=== PATIENT | female | born 1985 | race Hispanic/Latino ===

== ENCOUNTER 2016-09-12 23:28 | Observation (INO) | payer BC, OTHER ==
--- NOTE | 2016-09-12 23:39 | ED PDOC ---
Arrival/HPI - General Time Seen by Provider: 09/12/16 23:33 Historian: Patient - History of Present Illness Narrative History of Present Illness (Text): 09/12/16 23:35 Esme Walker is a 30 year old female who presents to the emergency department via EMS for alcohol intoxication. Per EMS, patient was with drinking with her family today and got into a verbal altercation with them, after which the police was called. Upon arrival, patient is agitated and uncooperative. Denies any suicidal or homicidal ideation. Denies any allergies or drug use. ROS limited due to intoxication. Symptom Onset: Gradual Severity Level: Mild Context: Home Past Medical History - Provider Review Nursing Documentation Reviewed: Yes - Past History Past History: No Previous - Infectious Disease Hx of Infectious Diseases: None - Endocrine/Metabolic Other/Comment: gilbert syndrom, Fransico farley - Musculoskeletal/Rheumatological Hx Musculoskeletal Disorders: No - Psychiatric Hx Substance Use: No - Anesthesia Hx Anesthesia: No Family/Social History - Physician Review Nursing Documentation Reviewed: Yes Family/Social History: No Known Family HX Smoking Status: Unknown If Ever Smoked Hx Alcohol Use: No Hx Substance Use: No Allergies/Home Meds Allergies/Adverse Reactions: Allergies No Known Allergies Allergy (Verified 05/09/15 13:34) Review of Systems - Review of Systems Systems not reviewed;Unavailable: Intoxicated Physical Exam Vital Signs Reviewed: Yes Vital Signs Temp Pulse Resp BP Pulse Ox 09/13/16 06:07 98.1 F 89 18 117/59 L 100 09/13/16 04:00 82 18 97 09/13/16 02:00 78 18 96 09/12/16 23:53 124 H 20 126/85 98 Temperature: Afebrile Blood Pressure: Normal Pulse: Regular Respiratory Rate: Normal Appearance: Positive for: Well-Appearing, Comfortable Pain Distress: None Mental Status: Positive for: Alert and Oriented X 3, Agitated - Systems Exam Head: Present: Atraumatic, Normocephalic Pupils: Present: PERRL Conjunctiva: Present: Normal Mouth: Present: Moist Mucous Membranes Respiratory/Chest: Present: Clear to Auscultation, Good Air Exchange. No: Respiratory Distress Cardiovascular: Present: Regular Rate and Rhythm Abdomen: No: Tenderness, Distention Upper Extremity: Present: Normal Inspection Lower Extremity: Present: Normal Inspection, Other (moving upper and lower extremities x 4) Neurological: Present: GCS=15, CN II-XII Intact, Speech Normal Skin: Present: Warm, Dry, Normal Color. No: Rashes Psychiatric: Present: Alert, Oriented x 3, Agitated, Intoxicated Medical Decision Making ED Course and Treatment: 09/12/16 23:41 Impression: A 30 year old female who presents to the emergency department for alcohol intoxication. Upon arrival, patient is agitated and uncooperative. Alcohol on breath. Patient was agitated and uncooperative and was obviously intoxicated. She would not change into a gown, was yelling about her children, was not redirectable, was threatening staff and posed a danger to herself and others. Sienna snider called and patient placed in restraints which will be removed KAYLIE. Plan: -- Labs -- Ativan -- Haldol -- B-HCG -- Reassess and disposition Progress Notes: 09/13/16 02:01 Labs reviewed. K replacement ordered. Patient is pending sobriety. Will continue to monitor 09/13/16 06:11 Patient is now AAOx3. She is requesting to go home. Patient's mother is coming to emergency department to get her. Will dc 09/13/16 06:35 Patient is not putting full weight of L leg and reports that she "sprained it" when referring to L ankle. Patient is limping around the ER. Patient was offered xrays and futher evaluation but is refusing. She reports "I just wanna go see my kids." Patient told that she could return at any time for evaluation. - Lab Interpretations Lab Results: 09/13/16 01:10 09/13/16 01:10 Lab Results 09/13/16 01:10: POC Glucose (mg/dL) 111 H 09/13/16 01:10: Beta HCG, Quant < 2.39, Alcohol, Quantitative 234 H 09/13/16 01:10: Sodium 140, Potassium 3.3 L, Chloride 103, Carbon Dioxide 23, Anion Gap 17, BUN 14, Creatinine 1.0, Est GFR ( Amer) > 60, Est GFR (Non- Af Amer) > 60, Random Glucose 104, Calcium 9.2, Total Bilirubin 1.5 H, AST 30, ALT 28, Alkaline Phosphatase 47, Total Protein 7.6, Albumin 4.6, Globulin 3.0, Albumin/Globulin Ratio 1.5 09/13/16 01:10: WBC 6.0, RBC 4.34, Hgb 13.4, Hct 40.0, MCV 92.2, MCH 30.9, MCHC 33.5, RDW 12.0, Plt Count 181, MPV 11.1 H, Gran % 69.8 H, Lymph % (Auto) 22.4, [place] % (Auto) 5.4, Eos % (Auto) 2.2, Baso % (Auto) 0.2, Gran # 4.18, Lymph # 1.3 , [place]in # 0.3, Eos # 0.1, Baso # 0.01 - Medication Orders Current Medication Orders: Discontinued Medications Haloperidol Lactate (Haldol) 5 mg IM STAT STA PRN Reason: Protocol Stop: 09/12/16 23:44 Last Admin: 09/12/16 23:46 Dose: 5 mg Lorazepam (Ativan) 2 mg IM ONCE ONE PRN Reason: Protocol Stop: 09/12/16 23:44 Last Admin: 09/12/16 23:46 Dose: 2 mg Potassium Chloride (K-Dur 20 Meq Er Tab) 40 meq PO STAT STA Stop: 09/13/16 01:58 ED OBSERVATION Discharge: Yes Date of observation admission: 09/13/16 Time of observation admission: 02:04 - Observation admission statement Patient is being placed in observation because:: alcohol intoxication - Goals of Observation Goals of observation are:: monitoring for sobriety and reevaluation when sober - Progress Note Progress Note: 09/13/16 04:04 Patient under sedation following agitative behavior. Stable vitals. 09/13/16 06:04 Patient resting comfortably in emergency department with stable vitals. - Scribe Statement The provider has reviewed the documentation as recorded by the Markibe Benigno Aj Provider Attestation: Provider Scribe Attestation: All medical record entries made by the Meli were at my direction and personally dictated by me. I have reviewed the chart and agree that the record accurately reflects my personal performance of the history, physical exam, medical decision making, and the department course for this patient. I have also personally directed, reviewed, and agree with the discharge instructions and disposition. Disposition/Present on Arrival - Present on Arrival Any Indicators Present on Arrival: No History of DVT/PE: No History of Uncontrolled Diabetes: No Urinary Catheter: No History Surgical Site Infection Following: None - Disposition Have Diagnosis and Disposition been Completed?: Yes Diagnosis: Alcohol intoxication, Ankle pain, left Disposition: HOME/ ROUTINE Disposition Time: 02:03 Patient Plan: Discharge Patient Problems: Current Active Problems Problem Status Onset Alcohol intoxication Acute Condition: GOOD
[2016-09-12 23:55] VITALS: BMI 26.7
[2016-09-13 01:41] LABS: ADD MANUAL DIFF? NO
[2016-09-13 01:43] LABS: BASO # 0.01 K/mm3 (0.0-2.0); BASO % 0.2 % (0.0-3.0); EOS # 0.1 (0.0-0.7); EOS % 2.2 % (1.5-5.0); GRAN # 4.18 (1.4-6.5); GRAN % 69.8 % (50.0-68.0); LYMPH # 1.3 (1.2-3.4); LYMPH % 22.4 % (22.0-35.0); MEAN CELL VOLUME 92.2 fL (80.0-105.0); MEAN CORPUSCULAR HEMOGLOBIN 30.9 pg (25.0-35.0); MEAN CORPUSCULAR HGB CONC 33.5 g/dl (31.0-37.0); MEAN PLATELET VOLUME 11.1 fl (7.0-11.0); MONO # 0.3 (0.1-0.6); MONO % 5.4 % (1.0-6.0); PLATELET COUNT 181 10^3/uL (120.0-450.0)
[2016-09-13 01:56] LABS: ALB/GLOB RATIO 1.5 (1.1-1.8); ALKALINE PHOSPHATASE 47 U/L (38-133); ALT/SGPT 28 U/L (7-56); AST/SGOT 30 U/L (15-39); BILIRUBIN,TOTAL 1.5 mg/dL (0.2-1.3); BLOOD UREA NITROGEN 14 mg/dL (7-21); CALCIUM 9.2 mg/dL (8.4-10.5); CARBON DIOXIDE 23 mmol/L (21-33); CHLORIDE 103 mmol/L (98-107); GFR AFRICAN-AMERICAN > 60; GLUCOSE,RANDOM 104 mg/dL (70-110); POTASSIUM 3.3 mmol/L (3.6-5.0); SODIUM 140 mmol/L (132-148); TOTAL PROTEIN 7.6 g/dL (5.8-8.3)
[2016-09-13 01:57] LABS: ALCOHOL SERUM 234 mg/dL (0-10)
[2016-09-13] MEDS ORDERED: Potassium Chloride 20 mEq ER Tab PO STA (01:57)
[2016-09-13 02:18] VITALS: RESP 18
[2016-09-13 06:08] VITALS: BP 117/59; PULSE 89; TEMP 98.1; O2SAT 100
== END 2016-09-13 06:35 | disposition home or self-care (01) ==
LOC: ED 23:28 → EROBSV 09-13 02:03
PROVIDERS: ADMIT Emergency Medicine; ATTEND Emergency Medicine
DX: F10.129 Alcohol abuse with intoxication, unspecified (principal); Y90.7 Blood alcohol level of 200-239 mg/100 ml; M25.572 Pain in left ankle and joints of left foot
CPT/HCPCS: 80053; 80320; 82948; 84702; 85025; 96372; 99285; G0378; J1630; J2060

== ENCOUNTER 2016-09-18 16:39 | Emergency (ER) | payer BC, OTHER ==
[2016-09-18 16:56] VITALS: TEMP 98; O2SAT 98; BMI 28.3
--- NOTE | 2016-09-18 17:18 | ED PDOC ---
Arrival/HPI - General Chief Complaint: Lower Extremity Problem/Injury Time Seen by Provider: 09/18/16 17:13 Historian: Patient - History of Present Illness Narrative History of Present Illness (Text): 09/18/16 17:15 30yo female who present with complaint of left foot pain/discoloration x one week. She states that she twisted her foot a week ago, while coming down stairs. Notes that she has being walking on the foot and did not take any medication for the pain. She states that she came to ED today because of the persistent swelling and discoloration. Denies any other complaint. Past Medical History - Provider Review Nursing Documentation Reviewed: Yes - Past History Past History: No Previous - Infectious Disease Hx of Infectious Diseases: None - Endocrine/Metabolic Other/Comment: gilbert syndrom, Fransico farley - Musculoskeletal/Rheumatological Hx Musculoskeletal Disorders: No - Psychiatric Hx Substance Use: No - Surgical History Hx Section: Yes - Anesthesia Hx Anesthesia: No Family/Social History - Physician Review Nursing Documentation Reviewed: Yes Family/Social History: Unknown Family HX Smoking Status: Never Smoked Hx Alcohol Use: No Hx Substance Use: No Allergies/Home Meds Allergies/Adverse Reactions: Allergies No Known Allergies Allergy (Verified 09/18/16 17:14) Review of Systems - Physician Review All systems were reviewed & negative as marked: Yes - Review of Systems Constitutional: Normal Eyes: Normal ENT: Normal Respiratory: Normal Cardiovascular: Normal Gastrointestinal: Normal Genitourinary Female: Normal Musculoskeletal: Arthralgias (Left foot pain/swelling) Skin: Normal Neurological: Normal Endocrine: Normal Hemo/Lymphatic: Normal Psychiatric: Normal Physical Exam Vital Signs Reviewed: Yes Vital Signs Temp Pulse Resp BP Pulse Ox 09/18/16 18:05 75 18 121/75 98 09/18/16 16:54 98 F 76 16 119/81 98 Temperature: Afebrile Blood Pressure: Normal Pulse: Regular Respiratory Rate: Normal Appearance: Positive for: Well-Appearing, Non-Toxic, Comfortable Pain Distress: None Mental Status: Positive for: Alert and Oriented X 3 - Systems Exam Head: Present: Atraumatic, Normocephalic Pupils: Present: PERRL Extroacular Muscles: Present: EOMI Conjunctiva: Present: Normal Mouth: Present: Moist Mucous Membranes Neck: Present: Normal Range of Motion Respiratory/Chest: Present: Clear to Auscultation, Good Air Exchange. No: Respiratory Distress, Accessory Muscle Use Cardiovascular: Present: Regular Rate and Rhythm, Normal S1, S2. No: Murmurs Abdomen: Present: Normal Bowel Sounds. No: Tenderness, Distention, Peritoneal Signs Back: Present: Normal Inspection Upper Extremity: Present: Normal Inspection. No: Cyanosis, Edema Lower Extremity: Present: NORMAL PULSES, Normal ROM, Tenderness (Diffuse left foot worse on the lateral area), Swelling (LEft foot), Neurovascularly Intact. No: Edema, CALF TENDERNESS, Erythema (Ecchymosis noted on left foot/toes), Deformity, Temperature Abnormalties Neurological: Present: GCS=15, CN II-XII Intact, Speech Normal Skin: Present: Warm, Dry, Normal Color. No: Rashes Psychiatric: Present: Alert, Oriented x 3, Normal Insight, Normal Concentration Medical Decision Making ED Course and Treatment: 09/18/16 18:08 Left foot xray - No acute fracture noted Result was DW the pt. Advise to RICE foot. Referred to ortho. TRT ED for any new or worsening symptoms - RAD Interpretation Radiology Orders: 09/18/16 17:14 FOOT LEFT 3 VIEWS ROUTINE [RAD] Stat - Medication Orders Current Medication Orders: Discontinued Medications Ibuprofen (Motrin Tab) 600 mg PO STAT STA Stop: 09/18/16 17:15 Last Admin: 09/18/16 17:22 Dose: Not Given Non-Admin Reason: Patient Refused Disposition/Present on Arrival - Present on Arrival Any Indicators Present on Arrival: No History of DVT/PE: No History of Uncontrolled Diabetes: No Urinary Catheter: No History of Decub. Ulcer: No History Surgical Site Infection Following: None - Disposition Have Diagnosis and Disposition been Completed?: Yes Diagnosis: Foot sprain Disposition: HOME/ ROUTINE Disposition Time: 18:05 Patient Plan: Discharge Patient Problems: Current Active Problems Problem Status Onset Foot sprain Acute Condition: STABLE Discharge Instructions (ExitCare): Ankle Sprain (ED) Additional Instructions: Rest, Ice, compress and elevate foot Follow up with your doctor/orthopedist Return to ED for any new or worsening symptoms Prescriptions: Ibuprofen [Motrin Tab] 600 mg PO Q6 #20 tab Referrals: RENUKA,NO [Primary Care Provider] - Follow up with primary Stuart Gonzalez DO [Staff Provider] - Follow up with primary
[2016-09-18 18:06] VITALS: BP 121/75; PULSE 75; RESP 18
--- NOTE | 2016-09-19 08:17 | RAD ---
PROCEDURE: Left Foot Radiographs. HISTORY: foot pain s/p trauma COMPARISON: None. FINDINGS: BONES: Normal. No fracture. JOINTS: Normal. SOFT TISSUES: Normal. OTHER FINDINGS: None. IMPRESSION: Normal left foot radiographs.
== END 2016-09-18 18:15 | disposition home or self-care (01) ==
LOC: ED 16:39
DX: S93.602A Unspecified sprain of left foot, initial encounter (principal); X50.0XXA Overexertion from strenuous movement or load, initial encounter; Y93.89 Activity, other specified; Y92.89 Other specified places as the place of occurrence of the external cause

== ENCOUNTER 2017-06-03 22:37 | Emergency (ER) | payer BC, OTHER ==
[2017-06-03 22:37] VITALS: BMI 28.3
[2017-06-03 23:33] VITALS: BP 129/70; PULSE 71; RESP 17; TEMP 98.3; O2SAT 100
--- NOTE | 2017-06-03 23:50 | ED PDOC ---
Arrival/HPI - General Chief Complaint: Weakness/Neurological Deficit Time Seen by Provider: 06/03/17 23:41 Historian: Patient - History of Present Illness Narrative History of Present Illness (Text): 06/03/17 23:42 31yr old female presents today with concerns for discoloration of her neck. pt states that she noticed her neck was changing color and thought there was something wrong. pt states she maybe has been feeling slightly fatigued for 2 days. pts partner was worried about the discoloration to the skin of the neck so he made her come to the ER. pt denies headaches, dizziness, cp, sob, no vomiting/diarrhea. no cp or sob. no abdominal pain. no urinary symptoms. eating and drinking well. no fever/chills. no uri symptoms. no other complaints. Past Medical History - Provider Review Nursing Documentation Reviewed: Yes - Travel History Have you recently traveled outside [place] w/in the past 3 mons?: No - Past History Past History: No Previous - Infectious Disease Hx of Infectious Diseases: None - Endocrine/Metabolic Other/Comment: gilbert syndrom, Fransico farley - Musculoskeletal/Rheumatological Hx Musculoskeletal Disorders: No - Psychiatric Hx Substance Use: No - Surgical History Hx Section: Yes - Anesthesia Hx Anesthesia: No Family/Social History - Physician Review Nursing Documentation Reviewed: Yes Family/Social History: Unknown Family HX Smoking Status: Never Smoked Hx Alcohol Use: No Hx Substance Use: No Allergies/Home Meds Allergies/Adverse Reactions: Allergies No Known Allergies Allergy (Verified 09/18/16 17:14) Review of Systems - Review of Systems Constitutional: Fatigue. absent: Fevers ENT: absent: Sore Throat, Sinus Congestion Respiratory: absent: SOB, Cough Cardiovascular: absent: Chest Pain, Palpitations Gastrointestinal: absent: Abdominal Pain, Nausea, Vomiting Genitourinary Female: absent: Dysuria Musculoskeletal: absent: Arthralgias Skin: absent: Rash, Pruritis Neurological: absent: Headache, Dizziness Psychiatric: absent: Anxiety, Depression, Suicidal Ideation Physical Exam Vital Signs Reviewed: Yes Vital Signs Temp Pulse Resp BP Pulse Ox 06/03/17 23:31 98.3 F 71 17 129/70 100 Temperature: Afebrile Blood Pressure: Normal Pulse: Regular Respiratory Rate: Normal Appearance: Positive for: Well-Appearing, Non-Toxic, Comfortable Pain Distress: None Mental Status: Positive for: Alert and Oriented X 3 - Systems Exam Head: Present: Atraumatic Pupils: Present: PERRL Extroacular Muscles: Present: EOMI Conjunctiva: Present: Normal Ears: Present: Normal Mouth: Present: Moist Mucous Membranes Pharnyx: Present: Normal Nose (Internal): Present: Normal Inspection Neck: Present: Normal Range of Motion, Trachea Midline. No: Meningeal Signs, MIDLINE TENDERNESS, Paraspinal Tenderness, Lymphadenopathy Respiratory/Chest: Present: Clear to Auscultation, Good Air Exchange. No: Respiratory Distress, Accessory Muscle Use Cardiovascular: Present: Regular Rate and Rhythm, Normal S1, S2. No: Murmurs Abdomen: No: Tenderness, Rebound, Guarding Back: Present: Normal Inspection. No: CVA Tenderness, Midline Tenderness, Paraspinal Tenderness Upper Extremity: Present: Normal ROM Lower Extremity: Present: Normal ROM Neurological: Present: GCS=15, Speech Normal Skin: Present: Warm, Dry, Normal Color. No: Rashes Psychiatric: Present: Alert, Oriented x 3 Medical Decision Making ED Course and Treatment: 06/03/17 23:51 pt is non toxic well appearing; no distress. stable vitals. pt was concerned about discoloration to her neck; Using alcohol wipe to the neck; a green color was removed from the neck and the neck returned to her normal skin color. pt reassessment; pt states she feels fine, states her son had dyed his hair green and it must have gotten on her neck. advised f/u with pmd. advised return if symptoms worsen,persist or if new symptoms develop. impression; well adult examination f/u with pmd return if symptoms worsen,persist or if new symptoms develop. Disposition/Present on Arrival - Present on Arrival Any Indicators Present on Arrival: No History of DVT/PE: No History of Uncontrolled Diabetes: No Urinary Catheter: No History of Decub. Ulcer: No History Surgical Site Infection Following: None - Disposition Have Diagnosis and Disposition been Completed?: Yes Diagnosis: Well adult exam Disposition: HOME/ ROUTINE Disposition Time: 23:41 Patient Plan: Discharge Condition: GOOD Additional Instructions: follow up with the primary care physician within the next 2 days return if symptoms worsen,persist or if new symptoms develop. Referrals: Michelle Gonzalez MD [Staff Provider] - Follow up with primary [facility] [place] [Outside] - Follow up with primary
== END 2017-06-03 23:48 | disposition home or self-care (01) ==
LOC: ED 22:37
DX: Z00.00 Encounter for general adult medical examination without abnormal findings (principal)

== ENCOUNTER 2018-04-20 08:07 | Emergency (ER) | payer MEDICAID, OTHER ==
[2018-04-20 08:08] VITALS: BMI 28.3
[2018-04-20 08:37] VITALS: TEMP 97.8; O2SAT 99
[2018-04-20] MEDS ORDERED: Sodium Chloride 0.9% 1,000 ML IV STA (08:51)
--- NOTE | 2018-04-20 09:00 | ED PDOC ---
Arrival/HPI - General Chief Complaint: ENT Problem Time Seen by Provider: 04/20/18 08:40 Historian: Patient - History of Present Illness Narrative History of Present Illness (Text): 04/20/18 08:40 Esme Walker is a 32 year old female who presents to the emergency department with complaints of ringing in the left ear since 3 months. Patient informs she did not fall and has not used a q-tip prior to onset. Patient informs that she has dizzy spells and feels like she is swaying when ambulating. Patient states she feels "like she is in a boat" but denies any medical evaluation since onset. Patient states her symptoms are getting worse over time associated with mild neck discomfort. Patient denies any fevers, chills, headache, chest pain, shortness of breath, dyspnea on exertion, cough, abdominal pain, nausea, vomiting, diarrhea, back pain, urinary symptoms or any other complaints. Patient informs occasional drinking but denies smoking cigarettes. Past medical history: Gilbert's syndrome Past surgical history: Caesarean section Time/Duration: > month Symptom Onset: Gradual Symptom Course: Worsening Activities at Onset: Light Context: Home Past Medical History - Provider Review Nursing Documentation Reviewed: Yes - Past History Past History: No Previous - Infectious Disease Hx of Infectious Diseases: None - Endocrine/Metabolic Other/Comment: gilbert syndrom, Fransico farley - Musculoskeletal/Rheumatological Hx Musculoskeletal Disorders: No - Psychiatric Hx Substance Use: No - Surgical History Hx Section: Yes - Anesthesia Hx Anesthesia: No Hx Anesthesia Reactions: No Hx Malignant Hyperthermia: No Family/Social History - Physician Review Nursing Documentation Reviewed: Yes Family/Social History: Unknown Family HX Smoking Status: Never Smoked Hx Alcohol Use: No Hx Substance Use: No Allergies/Home Meds Allergies/Adverse Reactions: Allergies diphenhydramine [From Benadryl] Allergy (Verified 04/20/18 08:33) ANAPHYLAXIS Review of Systems - Physician Review All systems were reviewed & negative as marked: Yes - Review of Systems Constitutional: absent: Fevers, Night Sweats ENT: Tinnitus (Left ear) Cardiovascular: absent: Chest Pain Gastrointestinal: Nausea. absent: Abdominal Pain, Diarrhea, Vomiting Genitourinary Female: absent: Dysuria Musculoskeletal: absent: Back Pain, Neck Pain Skin: absent: Rash Neurological: Dizziness. absent: Headache Physical Exam Vital Signs Reviewed: Yes Vital Signs Temp Pulse Resp BP Pulse Ox 04/20/18 08:08 97.8 F 67 18 119/83 99 Temperature: Afebrile Blood Pressure: Normal Pulse: Regular Respiratory Rate: Normal Appearance: Positive for: Well-Appearing, Non-Toxic, Comfortable Pain Distress: None Mental Status: Positive for: Alert and Oriented X 3 - Systems Exam Head: Present: Atraumatic, Normocephalic Pupils: Present: PERRL Extroacular Muscles: Present: EOMI Conjunctiva: Present: Normal Ears: Present: Normal Neck: Present: Normal Range of Motion. No: Meningeal Signs Respiratory/Chest: Present: Clear to Auscultation, Good Air Exchange. No: Respiratory Distress, Accessory Muscle Use Cardiovascular: Present: Regular Rate and Rhythm, Normal S1, S2. No: Murmurs Abdomen: No: Tenderness, Distention, Peritoneal Signs Back: Present: Normal Inspection Upper Extremity: Present: Normal Inspection. No: Cyanosis, Edema Lower Extremity: Present: Normal Inspection. No: Edema Neurological: Present: GCS=15, CN II-XII Intact, Speech Normal Skin: Present: Warm, Dry, Normal Color. No: Rashes Psychiatric: Present: Alert, Oriented x 3, Normal Insight, Normal Concentration Medical Decision Making ED Course and Treatment: 04/20/18 08:40 Impression: Patient is a 32 year old female who presents to the emergency department with ringing in the left ear. Plan: -- Labs -- CT Head W/O Contrast -- Reglan -- IV Fluids -- Reassess and disposition Prior Visits: Notes and results from previous visits were reviewed. Progress Notes: 04/20/18 10:18 Upon reassessment, patient states her symptoms have resolved and currently denies any dizziness. 04/20/18 12:02 CT of head reviewed by radiologist shows no acute findings. 04/20/18 13:02 bili elevated, pt has a hx of gilberts however and abd is non-ttp. Pt also denies any abd pain labs otherwise unremarkable remains w/ out ringing in ear or dizziness neuro exam remains unremarkable. Clear for d/c home with f/u and return indications, pt is agreeable to plan. - Scribe Statement The provider has reviewed the documentation as recorded by the Markibjose Matson training with Cari All medical record entries made by the Scribe were at my direction and personally dictated by me. I have reviewed the chart and agree that the record accurately reflects my personal performance of the history, physical exam, medical decision making, and the department course for this patient. I have also personally directed, reviewed, and agree with the discharge instructions and disposition. Disposition/Present on Arrival - Present on Arrival Any Indicators Present on Arrival: No History of DVT/PE: No History of Uncontrolled Diabetes: No Urinary Catheter: No History of Decub. Ulcer: No History Surgical Site Infection Following: None - Disposition Have Diagnosis and Disposition been Completed?: Yes Diagnosis: Migraine, Dizzy Disposition: HOME/ ROUTINE Disposition Time: 13:04 Condition: GOOD Discharge Instructions (ExitCare): Headache, Adult (DC), Vertigo (a Type of Dizziness) (DC) Additional Instructions: TAKE TYLENOL DIRECTED ON THE BOTTLE FOR HEADACHE ESME NICOL, thank you for letting us take care of you today. Your provider was Dameon Poon and you were treated for ear problem / dizzy. The emergency medical care you received today was directed at your acute symptoms. If you were prescribed any medication, please fill it and take as directed. It may take several days for your symptoms to resolve. Return to the Emergency Department if your symptoms worsen, do not improve, or if you have any other problems. Please contact your doctor or call one of the physicians/clinics you have been referred to that are listed on the Patient Visit Information form that is included in your discharge packet. Bring any paperwork you were given at discharge with you along with any medications you are taking to your follow up visit. Our treatment cannot replace ongoing medical care by a primary care provider outside of the emergency department. Thank you for allowing the [facility] team to be part of your care today. If you had an X-Ray or CT scan: A Radiologist will review the ED reading if any change in treatment is needed we will contact you. If you had a blood, urine, or wound culture: It will take several days for the results, if any change in treatment is needed we will contact you. If you had an STI test: It will take 48 hours for the results. Please call after 1 week if you have not heard back. Referrals: Sarah Page MD [Medical Doctor] - Follow up with primary Slade Perez MD [Staff Provider] - Follow up with primary Forms: [employer] ([place])
[2018-04-20 10:12] LABS: BASO # 0.02 K/mm3 (0.0-2.0); BASO % 0.2 % (0.0-3.0); EOS # 0.2 (0.0-0.7); EOS % 2.1 % (1.5-5.0); HEMOGLOBIN 13.8 g/dL (12.0-16.0); LYMPH # 1.7 (1.2-3.4); LYMPH % 17.8 % (22.0-35.0); MEAN CELL VOLUME 93.7 fl (80.0-105.0); MEAN CORPUSCULAR HEMOGLOBIN 30.9 pg (25.0-35.0); MEAN CORPUSCULAR HGB CONC 32.9 g/dl (31.0-37.0); MONO # 0.5 (0.1-0.6); RBC 4.47 10^6/uL (3.5-6.1); WHITE BLOOD COUNT 9.4 10^3/uL (4.5-11.0)
[2018-04-20 10:58] LABS: ALB/GLOB RATIO 1.5 (1.1-1.8); ALBUMIN 4.6 g/dL (3.0-4.8); ALT/SGPT 13 U/L (7-56); AST/SGOT 20 U/L (14-36); BLOOD UREA NITROGEN 13 mg/dL (7-21); GFR NON-AFRICAN AMERICAN > 60
--- NOTE | 2018-04-20 11:32 | CT ---
Date of service: 04/20/2018 PROCEDURE: CT HEAD WITHOUT CONTRAST. HISTORY: dizzy COMPARISON: None available. TECHNIQUE: Axial computed tomography images were obtained through the head/brain without intravenous contrast. Radiation dose: Total exam DLP = 938.37 mGy-cm. This CT exam was performed using one or more of the following dose reduction techniques: Automated exposure control, adjustment of the mA and/or kV according to patient size, and/or use of iterative reconstruction technique. FINDINGS: HEMORRHAGE: No intracranial hemorrhage. BRAIN: No mass effect or edema. No atrophy or chronic microvascular ischemic changes. VENTRICLES: Unremarkable. No hydrocephalus. CALVARIUM: Unremarkable. PARANASAL SINUSES: Unremarkable as visualized. No significant inflammatory changes. MASTOID AIR CELLS: Unremarkable as visualized. No inflammatory changes. OTHER FINDINGS: None. IMPRESSION: No acute findings
[2018-04-20 12:16] VITALS: BP 101/67; PULSE 70; RESP 16
== END 2018-04-20 13:15 | disposition home or self-care (01) ==
LOC: ED 08:07
DX: G43.909 Migraine, unspecified, not intractable, without status migrainosus (principal); R42 Dizziness and giddiness
CPT/HCPCS: 70450; 80053; 80320; 81025; 85025; 96361; 96374; 99282; J2765; J7030